=== PATIENT | male | born 1970 | race Caucasian/White ===

== ENCOUNTER 2016-07-01 16:37 | Emergency (ER) | payer OTHER ==
[~2016-07-01] VITALS: Ht 180.3 cm; Wt 79.0 kg
[2016-07-01 16:40] VITALS: BP 107/81; PULSE 57; RESP 18; TEMP 96.5; O2SAT 100
[2016-07-01] MEDS ORDERED: SODIUM CHLORIDE 0.9% FLUSH 5 ML FLUSH IVF PRN (18:45)
[2016-07-01] MEDS ORDERED: SODIUM CHLOR 0.9% 1000 ML INJ 1,000 ML IV ONE (18:45)
--- NOTE | 2016-07-01 18:58 | PD ---
HPI Chief Complaint: Chest Pain Time Seen by Provider: 18:25 Travel History International Travel<30 days: No Contact w/Intl Traveler<30days: No Traveled to known affect area: No History of Present Illness HPI Patient is a 45-year-old male with history of ASD repair 20 years ago, who presents to emergency room with complaints of chest pain. Rates that he has been having intermittent chest pain for the past 2 months. Reports that chest pain is located in his left chest, reports the pain felt a sharp and stabbing sensation. Patient reports that initially, symptoms were only with deep inspiration, patient now more constant but reproducible. Patient reports that today, symptoms and more onset and he has been having increased radiation of symptoms down his left arm. Patient reports that he was concerned that he may have a blood clot in his lungs as he is had recent long travels as well as long car rides. Patient with no history of PE or DVT, no family history of PE or DVT. Patient denies history of hypertension, hyperlipidemia, diabetes. Patient currently denies any medical history, patient does not take any medications at this time. Patient is a nonsmoker. PFSH Past Medical History Cardiovascular Problems: Yes Past Surgical History Cardiac Surgery: Yes (asd repair) Family History Family Myocardial Infarction: Yes Family Hypercholesterolemia: Yes Social History Tobacco Use: No Allergies-Medications (Allergen,Severity, Reaction): Coded Allergies: No Known Allergies (Unverified , 07/01/16) Review of Systems General / Constitutional: No: Fever Eyes: No: Visual changes HENT: No: Headaches Cardiovascular: Positive: Chest Pain or Discomfort Respiratory: No: Shortness of Breath, Wheezing Gastrointestinal: No: Abdominal Pain Genitourinary: No: Dysuria Musculoskeletal: No: Pain Skin: No Rash Neurologic: No: Weakness Psychiatric: No: Depression Endocrine: No: Polydipsia Hematologic/Lymphatic: No: Easy Bruising Physical Exam Narrative GENERAL: nad, nontoxic SKIN: Warm and dry. HEAD: Atraumatic. Normocephalic. EYES: Pupils equal and round. No scleral icterus. No injection or drainage. ENT: No nasal bleeding or discharge. Mucous membranes pink and moist. NECK: Trachea midline. No JVD. CARDIOVASCULAR: Regular rate and rhythm. No murmur appreciated. patient with reproducible left sided chest pain RESPIRATORY: No accessory muscle use. Clear to auscultation. Breath sounds equal bilaterally. GASTROINTESTINAL: Abdomen soft, non-tender, nondistended. Hepatic and splenic margins not palpable. MUSCULOSKELETAL: No obvious deformities. No clubbing. No cyanosis. No edema. NEUROLOGICAL: Awake and alert. No obvious cranial nerve deficits. Motor grossly within normal limits. Normal speech. PSYCHIATRIC: Appropriate mood and affect; insight and judgment normal. Data Data Last Documented VS Vital Signs Date Time Temp Pulse Resp B/P Pulse Ox O2 Delivery O2 Flow Rate FiO2 07/01/16 16:40 96.5 57 18 107/81 100 Orders B-Type Natriuretic Peptide (07/01/16 18:38) Ckmb (Isoenzyme) Profile (07/01/16 18:38) Complete Blood Count With Diff (07/01/16 18:38) Comprehensive Metabolic Panel (07/01/16 18:38) Prothrombin Time / Inr (Pt) (07/01/16 18:38) Act Partial Throm Time (Ptt) (07/01/16 18:38) Troponin I (07/01/16 18:38) Chest, Single Ap (07/01/16 18:38) Ecg Monitoring (07/01/16 18:38) Iv Access Insert/Monitor (07/01/16 18:38) Oximetry (07/01/16 18:38) Sodium Chloride 0.9% Flush (Ns Flush) (07/01/16 18:45) Ct Pulmonary Angiogram (07/01/16 18:38) Sodium Chlor 0.9% 1000 Ml Inj (Ns 1000 M (07/01/16 18:45) Electrocardiogram (07/01/16 16:41) MDM Medical Decision Making Medical Screen Exam Complete: Yes Emergency Medical Condition: Yes Interpretation(s) EKG at 1641: NSR at 67bpm, qt/qtc: 412/424, rbbb, no acute changes Vital Signs Date Time Temp Pulse Resp B/P Pulse Ox O2 Delivery O2 Flow Rate FiO2 07/01/16 16:40 96.5 57 18 107/81 100 Differential Diagnosis acs, arrhythmia, PE, pneumothorax, electrolyte abnormality Narrative Course Patient is a 45-year-old male with history of ASD repair 20 years ago who presents to emergency room with complaints of chest pain. Chest pain has been ongoing for the past 2 months, reports pain as sharp and stabbing with taking a deep breath. Patient reports that symptoms have been persistent today, reports he has had some numbness and tingling to his left upper extremity. Patient with no short of breath with symptoms. Patient denies diaphoresis, nausea or vomiting. Patient here for further evaluation of symptoms. Upon presentation to ER, patient was placed on health sciences dean. EKG obtained. Labs as well as x-ray chest ordered. Patient with pleuritic chest pain for the past 2 months, patient reports that [place], reports that he also had a long car ride, discussed possibility of PE pleuritic chest pain. CT of chest is ordered for evaluation of possible PE. Care of patient signed over to Dr. Gill at change of shift So Arvizu DO Jul 01, 2016 18:58
[2016-07-01 19:26] VITALS: BP 115/76; PULSE 55; RESP 18; O2SAT 98
[2016-07-01 19:30] LABS: AUTOMATED NEUTROPHIL # 4.1 TH/MM3 (1.8-7.7); BASOPHIL % 0.5 % (0.0-2.0); CHLORIDE 106 MEQ/L (98-107); EOSINOPHIL # 0.2 TH/MM3 (0-0.4); EOSINOPHIL % 3.4 % (0.0-4.0); HEMATOCRIT 44.1 % (39.0-51.0); LYMPH % 29.9 % (9.0-44.0); LYMPHOCYTE # 2.1 TH/MM3 (1.0-4.8); MEAN CELL VOLUME 86.2 FL (80.0-100.0); MEAN CORPUSCULAR HEMOGLOBIN 28.4 PG (27.0-34.0); MEAN CORPUSCULAR HGB CONC 32.9 % (32.0-36.0); MONO % 7.1 % (0.0-8.0); NEUT % 59.1 % (16.0-70.0); PLATELET COUNT 209 TH/MM3 (150-450); POTASSIUM 4.1 MEQ/L (3.5-5.1); RED BLOOD COUNT 5.11 MIL/MM3 (4.50-5.90); RED CELL DISTRIBUTION WIDTH 13.4 % (11.6-17.2); SODIUM (NA) 141 MEQ/L (136-145); WHITE BLOOD COUNT 6.9 TH/MM3 (4.0-11.0)
[2016-07-01 19:34] LABS: ANION GAP 7 MEQ/L (5-15); BICARBONATE 28.4 MEQ/L (21.0-32.0); BLOOD UREA NITROGEN 20 MG/DL (7-18)
[2016-07-01 19:37] LABS: ALT (GPT) 25 U/L (12-78); APTT (PATIENT) 27.5 SEC (24.3-30.1); AST (GOT) 25 U/L (15-37); GLOMERULAR FILTRATION RATE 89 ML/MIN (>89); PROTHROMBIN TIME - PATIENT 11.4 SEC (9.8-11.6)
[2016-07-01 19:38] LABS: HEMO FLAGS DIFF FINAL
[2016-07-01 19:39] LABS: TOTAL BILIRUBIN ADULT 0.6 MG/DL (0.2-1.0)
[2016-07-01 19:40] LABS: ALKALINE PHOSPHATASE 52 U/L (45-117); CREATINE KINASE 345 U/L (39-308)
[2016-07-01 19:52] LABS: CKMB 1.4 NG/ML (0.5-3.6)
--- NOTE | 2016-07-01 20:20 | RADHPO ---
EXAM DATE/TIME: 07/01/2016 19:08 [facility] COMPARISON: No previous studies available for comparison. INDICATIONS : Chest pains. MEDICAL HISTORY : None. SURGICAL HISTORY : Heart surgery 20 years ago. ENCOUNTER: Initial ACUITY: 2 months PAIN SCORE: 5/10 LOCATION: Left upper chest/shoulder area. FINDINGS: A single view of the chest demonstrates the lungs to be symmetrically aerated without evidence of mas s, infiltrate or effusion. The cardiomediastinal contours are unremarkable. Osseous structures are intact. CONCLUSION: 1. No active disease. Jose Ramon Ramos MD on July 01, 2016 at 20:17 Board Certified Radiologist. This report was verified electronically.
[2016-07-01 20:50] VITALS: BP 126/50; PULSE 57; RESP 16; O2SAT 100
[2016-07-01] MEDS ORDERED: IOHEXOL 350 MG/ML 10 ML VIAL (for RAD DIAG) IV ONE (20:59)
--- NOTE | 2016-07-01 21:31 | RADHPO ---
EXAM DATE/TIME: 07/01/2016 20:31 [facility] COMPARISON: No previous studies available for comparison. INDICATIONS : Evaluate for embolism. Chest and back pain. Dizziness. IV CONTRAST: 75 cc Omnipaque 350 (iohexol) IV RADIATION DOSE: 13.61 CTDIvol (mGy) MEDICAL HISTORY : Cardiovascular disease. SURGICAL HISTORY : None. ENCOUNTER: Initial ACUITY: 1 day PAIN SCALE: 3/10 LOCATION: chest TECHNIQUE: Volumetric scanning of the chest was performed using a pulmonary embolism protocol MIP images were re constructed. Using automated exposure control and adjustment of the mA and/or kV according to patien t size, radiation dose was kept as low as reasonably achievable to obtain optimal diagnostic quality images. FINDINGS: PULMONARY ARTERIES: No filling defects are seen in the pulmonary arteries through the segmental level. LUNGS: There is no consolidation or pneumothorax . No concerning pulmonary nodule is visualized. PLEURAE: There is no pleural thickening or pleural effusion. MEDIASTINUM: There is good visualization of the great vessels of the middle mediastinum. No evidence of mediastin al or hilar adenopathy/mass. MUSCULOSKELETAL: Within normal limits for patient age. MISCELLANEOUS: The visualized upper abdominal organs demonstrate no acute abnormality. CONCLUSION: Normal examination. Jose Ramon Ramos MD on July 01, 2016 at 21:28 Board Certified Radiologist. This report was verified electronically.
[2016-07-01] MEDS ORDERED: IBUP800T23 PO (21:51)
--- NOTE | 2016-07-01 21:52 | PD ---
Physical Exam Time Seen by Provider: 21:[address] Arvizu left this patient with me to check the results of the CT pulmonary angiogram and, because it will likely be normal, discharge. Data Data Last Documented VS Vital Signs Date Time Temp Pulse Resp B/P Pulse Ox O2 Delivery O2 Flow Rate FiO2 07/01/16 19:26 55 18 115/76 98 Room Air 07/01/16 16:40 96.5 Orders B-Type Natriuretic Peptide (07/01/16 18:38) Ckmb (Isoenzyme) Profile (07/01/16 18:38) Complete Blood Count With Diff (07/01/16 18:38) Comprehensive Metabolic Panel (07/01/16 18:38) Prothrombin Time / Inr (Pt) (07/01/16 18:38) Act Partial Throm Time (Ptt) (07/01/16 18:38) Troponin I (07/01/16 18:38) Chest, Single Ap (07/01/16 18:38) Ecg Monitoring (07/01/16 18:38) Iv Access Insert/Monitor (07/01/16 18:38) Oximetry (07/01/16 18:38) Sodium Chloride 0.9% Flush (Ns Flush) (07/01/16 18:45) Ct Pulmonary Angiogram (07/01/16 18:38) Sodium Chlor 0.9% 1000 Ml Inj (Ns 1000 M (07/01/16 18:45) Electrocardiogram (07/01/16 16:41) CKMB (07/01/16 19:20) CKMB% (07/01/16 19:20) Iohexol 350 Inj (Omnipaque 350 Inj) (07/01/16 20:59) Labs Laboratory Tests Test 07/01/16 19:20 White Blood Count 6.9 TH/MM3 Red Blood Count 5.11 MIL/MM3 Hemoglobin 14.5 GM/DL Hematocrit 44.1 % Mean Corpuscular Volume 86.2 FL Mean Corpuscular Hemoglobin 28.4 PG Mean Corpuscular Hemoglobin 32.9 % Concent Red Cell Distribution Width 13.4 % Platelet Count 209 TH/MM3 Mean Platelet Volume 8.7 FL Neutrophils (%) (Auto) 59.1 % Lymphocytes (%) (Auto) 29.9 % Monocytes (%) (Auto) 7.1 % Eosinophils (%) (Auto) 3.4 % Basophils (%) (Auto) 0.5 % Neutrophils # (Auto) 4.1 TH/MM3 Lymphocytes # (Auto) 2.1 TH/MM3 Monocytes # (Auto) 0.5 TH/MM3 Eosinophils # (Auto) 0.2 TH/MM3 Basophils # (Auto) 0.0 TH/MM3 CBC Comment DIFF FINAL Differential Comment Prothrombin Time 11.4 SEC Prothromb Time International 1.0 RATIO Ratio Activated Partial 27.5 SEC Thromboplast Time Sodium Level 141 MEQ/L Potassium Level 4.1 MEQ/L Chloride Level 106 MEQ/L Carbon Dioxide Level 28.4 MEQ/L Anion Gap 7 MEQ/L Blood Urea Nitrogen 20 MG/DL Creatinine 0.93 MG/DL Estimat Glomerular Filtration 89 ML/MIN Rate Random Glucose 80 MG/DL Calcium Level 8.7 MG/DL Total Bilirubin 0.6 MG/DL Aspartate Amino Transf 25 U/L (AST/SGOT) Alanine Aminotransferase 25 U/L (ALT/SGPT) Alkaline Phosphatase 52 U/L Total Creatine Kinase 345 U/L Creatine Kinase MB 1.4 NG/ML Creatine Kinase MB % 0.4 % Troponin I 0.02 NG/ML B-Type Natriuretic Peptide 30 PG/ML Total Protein 7.2 GM/DL Albumin 4.1 GM/DL [facility] Medical Record Reviewed: Yes Supervised Visit with EDWIN: Yes Interpretation(s) The CBC is normal. The complete metabolic profile shows a BUN of 20, total CK of 345 but is otherwise normal. The BNP is normal and the cardiac enzymes are normal except for the total CK of 345. The chest x-ray is normal and the CT pulmonary angiogram is normal. Differential Diagnosis Pneumonia, pulmonary embolus, anemia, electrolyte disorder, acute coronary syndromeunlikely, congestive heart failureunlikely, atypical chest pain Narrative Course The patient has atypical chest pain. There is no evidence of the pain being heart related and there is no evidence of pulmonary embolus. Because of the patient's pleuritic symptoms, this appears to be pleurisy. Plan: The patient will take Motrin 800 mg 3 times daily. He is given 30 mg of Toradol IV now. Diagnosis Primary Impression: Atypical chest pain Med/Other Pt SpecificInfo: Prescription(s) given Scripts Ibuprofen 800 Mg [id number] Mg PO TID #45 TAB Ref 0 Prov:Jonathan Gill MD 07/01/16 Disposition: 01 DISCHARGE HOME Condition: Stable Jonathan Gill MD Jul 01, 2016 21:52
[2016-07-01] MEDS ORDERED: KETOROLAC TROMETHAMINE 60 MG/2 ML (IM) VIAL IVP ONE (22:00)
[2016-07-01 22:02] VITALS: BP 131/56
--- NOTE | 2016-07-02 16:21 | EKG ---
Date Performed: 07/01/2016 Time Performed: 16:41:36 PTAGE: 45 years EKG: Sinus rhythm Incomplete right bundle branch block. Abnormal ECG NO PREVIOUS TRACING DOCTOR: Venkata Clancy Interpretating Date/Time 07/02/2016 16:20:03
== END 2016-07-01 22:03 | disposition home or self-care (01) ==
LOC: PHED 16:37
DX: R07.89 Other chest pain (principal)
CPT/HCPCS: 71010; 71275; 80053; 82550; 82552; 83880; 84484; 85025; 85610; 85730; 93005; 96360; 99285; J7030; Q9967